=== PATIENT | male | born 1995 | race Caucasian/White ===

== ENCOUNTER 2016-07-30 09:46 | Emergency (ER) | payer BC ==
[2016-07-30 10:36] VITALS: BP 138/73
--- NOTE | 2016-07-30 12:08 | UC ---
Respiratory Complaint HPI - HPI Summary HPI Summary: cough congestion chest tightness fever worsening for the past 3 days - History of Current Complaint Chief Complaint: UCRespiratory Stated Complaint: CHEST CONGESTION Time Seen by Provider: 07/30/16 11:04 Hx Obtained From: Patient Onset/Duration: Sudden Onset, Lasting Days - 3, Still Present Timing: Constant Severity Initially: Mild Severity Currently: Moderate Pain Intensity: 4 Pain Scale Used: 0-10 Numeric Character: Cough: Productive Aggravating Factors: Exertion Alleviating Factors: Nothing Associated Signs And Symptoms: Positive: Fever, Chills, Pleuritic Chest Pain, URI - Allergies/Home Medications Allergies/Adverse Reactions: Allergies Allergy/AdvReac Type Severity Reaction Status Date / Time avoids naproxen AdvReac hx of Uncoded 07/30/16 10:37 ulcers PMH/Surg Hx/FS Hx/Imm Hx Previously Healthy: No GI/ History Of: Reports: Ulcer - Surgical History Surgical History: Yes Surgery Procedure, Year, and Place: HERNIA REPAIR - Family History Known Family History: Positive: Respiratory Disease - Social History Occupation: Employed Full-time - At [employer] Lives: With Family Alcohol Use: Rare Substance Use Type: None Smoking Status (MU): Never Smoked Tobacco - Immunization History Most Recent Influenza Vaccination: Review of Systems Constitutional: Fever, Chills Skin: Negative Eyes: Negative ENT: Negative Respiratory: Cough Cardiovascular: Chest Pain - bronchial Gastrointestinal: Negative Genitourinary: Negative Motor: Negative Neurovascular: Negative Musculoskeletal: Negative Neurological: Negative Psychological: Negative All Other Systems Reviewed And Are Negative: Yes Physical Exam Triage Information Reviewed: Yes Appearance: Well-Appearing, No Pain Distress, Well-Nourished Vital Signs: Initial Vital Signs Temp 101.2 F 07/30/16 10:33 Pulse 107 07/30/16 10:33 Resp 16 07/30/16 10:33 BP 138/73 07/30/16 10:33 Pulse Ox 98 07/30/16 10:33 Vital Signs Reviewed: Yes Eye Exam: Normal Eyes: Positive: Conjunctiva Clear ENT Exam: Normal ENT: Positive: Normal ENT inspection, Hearing grossly normal, Pharynx normal. Negative: Nasal congestion, Nasal drainage, TMs normal, Tonsillar swelling, Tonsillar exudate, Trismus, Muffled/hoarse voice Dental Exam: Normal Neck exam: Normal Neck: Positive: Supple, Nontender, No Lymphadenopathy Respiratory Exam: Normal Respiratory: Positive: Chest non-tender, Lungs clear, Normal breath sounds, No respiratory distress, No accessory muscle use Cardiovascular Exam: Other Cardiovascular: Positive: No Murmur, Pulses Normal, Brisk Capillary Refill, Tachycardia Musculoskeletal Exam: Normal Musculoskeletal: Positive: Strength Intact, ROM Intact, No Edema Neurological Exam: Normal Neurological: Positive: Alert, Muscle Tone Normal Psychological Exam: Normal Psychological: Positive: Normal Response To Family Skin Exam: Normal UC Diagnostic Evaluation - Laboratory O2 Sat by Pulse Oximetry: 98 Respiratory Course/Dx - Course Course Of Treatment: prednisone, albuterol, zithromax, increase fluids, follow with pcp re-check prn - Differential Dx/Diagnosis Differential Diagnosis/HQI/PQRI: Asthma, Bronchitis, Laryngitis, Lower Resp Infection, Tuberculosis Provider Diagnoses: Bronchitis with bronchospastic cough Discharge - Discharge Plan Condition: Stable Disposition: HOME Prescriptions: Albuterol HFA INHALER* [Ventolin HFA Inhaler*] 2 puff INH Q6H PRN #1 mdi PRN Reason: cough chest tightness Azithromycin TAB* [Zithromax TAB (Z-PAULA) 250 mg #6 tabs] 2 tab PO .TODAY, THEN 1 DAILY #1 paula Prednisone 40 mg PO DAILY #8 tab Patient Education Materials: Fever in Adults (ED), How to Use a Metered-Dose Inhaler (ED), Acute Bronchitis (ED) Referrals: Magaly Milton MD [Primary Care Provider] - If Needed
== END 2016-07-30 12:00 | disposition home or self-care (01) ==
LOC: UCCORT 09:46
DX: J20.9 Acute bronchitis, unspecified (principal); R07.89 Other chest pain; Z88.6 Allergy status to analgesic agent
CPT/HCPCS: 87502; 99212; G0463

== ENCOUNTER 2016-12-06 14:33 | Emergency (ER) | payer BC ==
[2016-12-06 14:51] VITALS: BP 128/75
--- NOTE | 2016-12-06 15:16 | UC ---
Respiratory Complaint HPI - HPI Summary HPI Summary: 21 male presents with complaints of cough that has been ongoing for the past week. States he also has a raspy voice that is accompanied by the cough. Denies production and any blood. Denies nasal congestion, sore throat, ear pain. Admits to having nausea and vomiting due to coughing so hard. Denies any chest pain just states he feels pressure and chest congestion. Denies SOB, difficulty breathing. Has been taking robitussin at bedtime with some relief. Cough is worse when laying down. Denies known fever/chills. Does admit to sweating at night time and his girlfriend states he feels very warm. No PMHx. Denies asthma or any other complaints at this time. - History of Current Complaint Chief Complaint: UCRespiratory Stated Complaint: UPPER RES/COUGH Time Seen by Provider: 12/06/16 14:47 Hx Obtained From: Patient Onset/Duration: Sudden Onset, Lasting Weeks - 1, Still Present Timing: Constant Severity Initially: Mild Severity Currently: Mild Pain Intensity: 0 Pain Scale Used: 0-10 Numeric Character: Cough: Nonproductive Aggravating Factors: Deep Breaths, Recumbent Position Alleviating Factors: OTC Meds - robitussin at night time, Upright Position Associated Signs And Symptoms: Positive: Fever - subjective, "sweating at night time". Negative: Dyspnea, Pleuritic Chest Pain, Wheezing, Hemoptysis, Dizziness , Calf Pain, Calf Swelling, URI, Nasal Congestion, Sinus Discomfort - Risk Factors Pulmonary Embolism Risk Factors: Negative Cardiac Risk Factors: Negative - Allergies/Home Medications Allergies/Adverse Reactions: Allergies Allergy/AdvReac Type Severity Reaction Status Date / Time avoids naproxen AdvReac hx of Uncoded 12/06/16 14:51 ulcers PMH/Surg Hx/FS Hx/Imm Hx - Additional Past Medical History Additional PMH: Denies PMHx. No diabetes, hypertension or asthma. no current medications other than robitussin at bedtime. - Surgical History Surgical History: Yes Surgery Procedure, Year, and Place: HERNIA REPAIR - Family History Known Family History: Positive: Respiratory Disease - Social History Alcohol Use: None Substance Use Type: None Smoking Status (MU): Never Smoked Tobacco - Immunization History Most Recent Influenza Vaccination: Vaccination Up to Date: Yes Review of Systems Constitutional: Fever - subjective Skin: Negative Eyes: Negative ENT: Negative Respiratory: Cough Cardiovascular: Negative Gastrointestinal: Vomiting, Nausea Motor: Negative Musculoskeletal: Negative Neurological: Negative All Other Systems Reviewed And Are Negative: Yes Physical Exam Triage Information Reviewed: Yes Appearance: Well-Appearing, No Pain Distress, Well-Nourished Vital Signs: Initial Vital Signs Temp 98.4 F 12/06/16 14:47 Pulse 75 12/06/16 14:47 Resp 18 12/06/16 14:47 BP 128/75 12/06/16 14:47 Pulse Ox 98 12/06/16 14:47 not hypoxic, afebrile Vital Signs Reviewed: Yes Eyes: Positive: Conjunctiva Clear ENT: Positive: Normal ENT inspection, Hearing grossly normal, Pharynx normal, TMs normal. Negative: Nasal congestion, Nasal drainage Dental: Negative: Percussion Tenderness @, Cervical Lymphadenopathy Neck: Positive: Supple, Nontender, No Lymphadenopathy Respiratory: Positive: Chest non-tender - coughing upon taking deep breaths, Lungs clear, Normal breath sounds, No respiratory distress, No accessory muscle use. Negative: Respiratory distress, Decreased breath sounds, Accessory muscle use, Crackles, Rhonchi, Stridor, Wheezing Cardiovascular: Positive: RRR, No Murmur, Pulses Normal Abdomen Description: Positive: Nontender, No Organomegaly, Soft Bowel Sounds: Positive: Present Musculoskeletal: Positive: Strength Intact, ROM Intact, No Edema Neurological: Positive: Alert Psychological Exam: Normal Skin Exam: Normal UC Diagnostic Evaluation - Laboratory O2 Sat by Pulse Oximetry: 98 Respiratory Course/Dx - Course Course Of Treatment: appears to be suffering from bronchitis. given prednisone and tessalon pearls. also suggested mucinex over the counter, fluids and rest. aware of worsening signs and symptoms. follow up pcp. return if symptoms persist or worsen within the next 7-10 days. - Differential Dx/Diagnosis Differential Diagnosis/HQI/PQRI: Asthma, Bronchitis, Influenza, Laryngitis, Lower Resp Infection, Other - upper respiratory complaint Provider Diagnoses: Acute Bronchitis Discharge - Discharge Plan Condition: Stable Disposition: HOME Prescriptions: Benzonatate CAP* [Tessalon 100 MG CAP*] 100 mg PO TID PRN #25 cap PRN Reason: Cough predniSONE TAB* [Deltasone TAB*] 40 mg PO DAILY #6 tab Patient Education Materials: Acute Bronchitis (ED) Referrals: Magaly Milton MD [Primary Care Provider] - Additional Instructions: Take prescribed medications as directed and as we discussed. Take the steroid ( prednisone) in the morning. Try and take cough medication only as needed and at bedtime. Take Mucinex over the counter for the next 7-10 days. Get plenty of rest and increase fluid intake. Follow up with PCP. If symptoms worsen, new symptoms develop or do not improve in the next 7-10 days please seek medical attention or return.
== END 2016-12-06 15:28 | disposition home or self-care (01) ==
LOC: UCCORT 14:33
DX: J20.9 Acute bronchitis, unspecified (principal); Z88.6 Allergy status to analgesic agent
CPT/HCPCS: 99212; G0463

== ENCOUNTER 2016-12-11 17:51 | Emergency (ER) | payer BC ==
[2016-12-11 18:27] VITALS: BP 167/80
[2016-12-11] MEDS ORDERED: Ibuprofen TAB* 600 MG PO ONE (18:29)
--- NOTE | 2016-12-11 18:37 | UC ---
Respiratory Complaint HPI - HPI Summary HPI Summary: C/o cough x > 1 wk. He was here 12/06 and dx'd with virus, given prednisone x 3 days. No inhaler, no abx. Cough has worsened and now with fever up to 101.3. Tool ibuprofen 7 hrs ago. + wheezing. no asthma hx. Has had to use inhaler in past. Here with his Remberto. - History of Current Complaint Chief Complaint: UCRespiratory Stated Complaint: COUGH Time Seen by Provider: 12/11/16 18:26 - Allergies/Home Medications Allergies/Adverse Reactions: Allergies Allergy/AdvReac Type Severity Reaction Status Date / Time avoids naproxen AdvReac hx of Uncoded 12/11/16 18:20 ulcers PMH/Surg Hx/FS Hx/Imm Hx Previously Healthy: Yes - Surgical History Surgical History: Yes Surgery Procedure, Year, and Place: HERNIA REPAIR - Family History Known Family History: Positive: Respiratory Disease - denies Fhx asthma - Social History Alcohol Use: None Substance Use Type: None Smoking Status (MU): Never Smoked Tobacco - Immunization History Most Recent Influenza Vaccination: Most Recent Tetanus Shot: UTD Vaccination Up to Date: Yes Review of Systems Constitutional: Fever, Fatigue Skin: Negative Eyes: Negative ENT: Negative Respiratory: Cough, Other - +wheezing Cardiovascular: Negative Gastrointestinal: Negative Genitourinary: Negative Motor: Negative Neurovascular: Negative Musculoskeletal: Negative Neurological: Negative Psychological: Negative All Other Systems Reviewed And Are Negative: Yes Physical Exam Triage Information Reviewed: Yes Appearance: Ill-Appearing - significant cough. Vital Signs: Initial Vital Signs Temp 101.5 F 12/11/16 18:20 Pulse 115 12/11/16 18:20 Resp 18 12/11/16 18:20 BP 167/80 12/11/16 18:20 Pulse Ox 100 12/11/16 18:20 Vital Signs Reviewed: Yes Eye Exam: Normal ENT: Positive: Pharyngeal erythema - +PND, TMs normal. Negative: Nasal congestion, TM bulging, TM dull, TM red, Tonsillar swelling, Tonsillar exudate, Muffled/hoarse voice Dental Exam: Normal Neck exam: Normal Neck: Positive: Supple, Nontender, No Lymphadenopathy Respiratory: Positive: Chest non-tender, Lungs clear, Decreased breath sounds. Negative: Crackles, Rhonchi, Stridor, Wheezing Cardiovascular Exam: Normal Cardiovascular: Positive: RRR, No Murmur, Pulses Normal, Brisk Capillary Refill Abdomen Description: Positive: Nontender, Soft Musculoskeletal Exam: Normal Neurological Exam: Normal Psychological Exam: Normal Skin Exam: Normal UC Diagnostic Evaluation - Laboratory O2 Sat by Pulse Oximetry: 100 Respiratory Course/Dx - Course Course Of Treatment: CXR today- RML infiltrate. Treat with augmentin - 1st dose given here. albuterol HFA. medrol dose pack to start tomorrow. Discussed that fatigue and cough may take up to 1 mo to resolve. fluids and rest. - Differential Dx/Diagnosis Differential Diagnosis/HQI/PQRI: Bronchitis, Lower Resp Infection, Other - pneumonia Provider Diagnoses: pneumonia Discharge - Discharge Plan Condition: Stable Disposition: HOME Prescriptions: Amoxicillin/Clavulanate TAB* [Augmentin TAB 875*] 875 mg PO BID #20 tab Methylprednisolone [Medrol Dosepak 4 MG*] 4 mg PO DAILY #1 belkys Patient Education Materials: Pneumonia (ED) Forms: *Work Release Referrals: Non Staff,Doctor [Primary Care Provider] - Saulo Eckert MD [Medical Doctor] - 2 Days Additional Instructions: Make sure to take a probiotic daily while on the antibiotic to help avoid a complication called c diff. make sure you get a repeat chest xray 4-6 weeks from now. Use the inhaler every 4-6 hrs. prednisone has been sent to the pharmacy with the remainder of the antibiotic. Please go to ER if your symptoms worsen.
--- NOTE | 2016-12-11 18:45 | RAD ---
INDICATION: Cough and fever. COMPARISON: Comparison is made with a prior study from August 19, 2015. TECHNIQUE: Dual-energy PA and lateral views of the chest were obtained. FINDINGS: The heart is within normal limits in size. Mediastinal and hilar contours appear within normal limits. The lungs are underinflated. There is a small patchy infiltrate present in the right middle lobe. The lungs are otherwise clear. No pleural effusion is seen. IMPRESSION: RIGHT MIDDLE LOBE INFILTRATE.
[2016-12-11] MEDS ORDERED: Amoxicillin/Clavulanate TAB* 875 MG PO ONE (19:09)
[2016-12-11] MEDS ORDERED: Albuterol HFA INHALER* 8 gm MDI INH ONE (19:10)
== END 2016-12-11 19:30 | disposition home or self-care (01) ==
LOC: UCCORT 17:51
DX: J18.9 Pneumonia, unspecified organism (principal)
CPT/HCPCS: 71020; 99213; A9270-GY; G0463

== ENCOUNTER 2016-12-13 17:33 | Emergency (ER) | payer BC ==
[2016-12-13 17:45] VITALS: BP 130/81
--- NOTE | 2016-12-13 18:53 | UC ---
Laceration HPI - HPI Summary HPI Summary: Patient presents with laceration to the right side of the cheek in the crease of the nose. He states he was hit in the face with a lug wrench. Denies LOC. Denies other symptoms. He was seen 2 days ago for PNA and states he is feeling better on the medication. Denies blood thinners. - History Of Current Complaint Chief Complaint: UCLaceration Stated Complaint: FACIAL LACERATION Hx Obtained From: Patient Laceration Location: Face Mechanism Of Injury: Sharp Trauma Onset/Duration: Sudden Onset Severity: Mild Pain Intensity: 0 Pain Scale Used: 0-10 Numeric Aggravating Factors: Nothing - Allergies/Home Medications Allergies/Adverse Reactions: Allergies Allergy/AdvReac Type Severity Reaction Status Date / Time avoids naproxen AdvReac hx of Uncoded 12/13/16 17:40 ulcers PMH/Surg Hx/FS Hx/Imm Hx Previously Healthy: Yes - Surgical History Surgical History: Yes Surgery Procedure, Year, and Place: HERNIA REPAIR - Family History Known Family History: Positive: Respiratory Disease - denies Fhx asthma - Social History Occupation: Employed Full-time Lives: With Family Alcohol Use: None Substance Use Type: None Smoking Status (MU): Never Smoked Tobacco Have You Smoked in the Last Year: No - Immunization History Most Recent Influenza Vaccination: Most Recent Tetanus Shot: UTD Vaccination Up to Date: Yes Review of Systems Constitutional: Negative Skin: Other - 2cm laceration to the right crease of the nose Eyes: Negative ENT: Sore Throat, Nasal Discharge, Sinus Congestion, Sinus Pain/Tenderness Respiratory: Shortness Of Breath, Cough Motor: Negative Neurovascular: Negative Musculoskeletal: Negative Neurological: Negative Psychological: Negative All Other Systems Reviewed And Are Negative: Yes Physical Exam Triage Information Reviewed: Yes Appearance: Well-Appearing, Well-Nourished Vital Signs: Initial Vital Signs Temp 100 F 12/13/16 17:40 Pulse 107 12/13/16 17:40 Resp 16 12/13/16 17:40 BP 130/81 12/13/16 17:40 Pulse Ox 98 12/13/16 17:40 Vital Signs Reviewed: Yes Eye Exam: Normal Eyes: Positive: Conjunctiva Clear ENT Exam: Normal ENT: Positive: Nasal drainage, Muffled/hoarse voice Neck exam: Normal Neck: Positive: Supple, Nontender, No Lymphadenopathy Respiratory Exam: Normal Cardiovascular Exam: Normal Cardiovascular: Positive: RRR Musculoskeletal Exam: Normal Musculoskeletal: Positive: Strength Intact Neurological Exam: Normal Psychological: Positive: Normal Response To Family, Age Appropriate Behavior Skin Exam: Normal Laceration Repair - Laceration Repair 1 Description: Linear Laceration Size After Repair: Length (cm) - 2cm Modified For Repair: No Closure Material: Skin Adhesive Laceration Course/Dx - Course/Dx Course Of Treatment: Wound irrigated. Skin adhesive applied with good effect. Bandage applied. Patient agrees to return for worsening symptoms. - Differential Dx - Laceration/Wound Differental Diagnoses: Abrasion, Avulsion, Foreign Body, Laceration Provider Diagnoses: laceration to nose Discharge - Discharge Plan Condition: Stable Disposition: HOME Patient Education Materials: Skin Adhesive Care (ED) Referrals: Non Staff,Doctor [Primary Care Provider] - Additional Instructions: Follow up for any worsening symptoms Tylenol or Ibuprofen for any discomfort
== END 2016-12-13 18:34 | disposition home or self-care (01) ==
LOC: UCCORT 17:33
DX: S01.21XA Laceration without foreign body of nose, initial encounter (principal); W27.8XXA Contact with other nonpowered hand tool, initial encounter; Y92.9 Unspecified place or not applicable
CPT/HCPCS: 12001; 12011; 99211; G0463

== ENCOUNTER 2017-09-22 08:23 | Emergency (ER) | payer BC ==
[2017-09-22 08:47] VITALS: BP 135/73
--- NOTE | 2017-09-22 09:29 | ED ---
Neck Pain - HPI Summary HPI Summary: Pt states woke up 3 days ago with tightess on right side on neck. sx have continued Little improvement with motrin 200mg no parehtesia, no ext weakness. no direct trauma no cp, sob, abd pain. No park, vision changes Pt notes improvement following shower - but brief no h/o similar pt's medications reviewed this visit - History of Current Complaint Chief Complaint: UCBackPain Stated Complaint: NECK PAIN Hx Obtained From: Patient Onset/Duration Of Injury/Symptoms: Days Mechanism Of Injury: Other - "slept funny" Timing: Constant, Lasting Days Onset/Duration: Started days ago Severity Initially: Mild Severity Currently: Moderate Pain Intensity: 5 - Allergies/Home Medications Allergies/Adverse Reactions: Allergies Allergy/AdvReac Type Severity Reaction Status Date / Time avoids naproxen AdvReac hx of Uncoded 09/22/17 08:47 ulcers PMH/Surg Hx/FS Hx/Imm Hx Previously Healthy: Yes Cardiovascular History: Denies: Other Cardiovascular Problems/Disorders - DENIES Respiratory History: Denies: Hx Asthma, Other Respiratory Problems/Disorders GI History: Reports: Hx Ulcer Denies: Other GI Disorders - DENIES History: Denies: Other Problems/Disorders - DENIES Neurological History: Denies: Other Neuro Impairments/Disorders - DENIES - Surgical History Surgery Procedure, Year, and Place: HERNIA REPAIR Infectious Disease History: No Infectious Disease History: Denies: Hx Clostridium Difficile, Hx Hepatitis, Hx Human Immunodeficiency Virus (HIV), Hx of Known/Suspected MRSA, Hx Shingles, Hx Tuberculosis, Hx Known/ Suspected VRE, Hx Known/Suspected VRSA, History Other Infectious Disease, Traveled Outside the [place] in Last 30 Days - Family History Known Family History: Positive: Respiratory Disease - denies Fhx asthma - Social History Occupation: Employed Full-time - [employer] [place] Lives: With Family Alcohol Use: None Substance Use Type: Reports: None Smoking Status (MU): Never Smoked Tobacco Have You Smoked in the Last Year: No Review of Systems Constitutional: Negative Positive: Decreased ROM, Other - neck Positive: Paresthesia All Other Systems Reviewed And Are Negative: Yes Physical Exam Triage Information Reviewed: Yes Vital Signs On Initial Exam: Initial Vitals Temp Pulse Resp BP Pulse Ox 98.1 F 89 18 135/73 98 09/22/17 08:43 04/06/18 08:43 09/22/17 08:43 09/22/17 08:43 09/22/17 08:43 Vital Signs Reviewed: Yes Appearance: Positive: Well-Appearing, Pain Distress - discomfort with movemet Skin: Positive: Warm, Dry Head/Face: Positive: Normal Head/Face Inspection Eyes: Positive: Normal, EOMI, MAKSIM ENT: Positive: Normal ENT inspection, Hearing grossly normal, Pharynx normal, TMs normal Neck: Positive: Supple, No Lymphadenopathy, Tenderness @ - right trapezius Respiratory/Lung Sounds: Positive: Clear to Auscultation, Breath Sounds Present Cardiovascular: Positive: Normal, RRR Abdomen Description: Positive: Nontender, No Organomegaly, Soft Bowel Sounds: Positive: Present Musculoskeletal: Positive: Other - no pain spinous process c/t/l/s + TTP right trapezius palpable right paraspinal muscles right upper cervical + flex neck with discomfort + extension + pain with rotation to left full AROM upper exxt b/ l with full strength Neurological: Positive: Sensory/Motor Intact, Alert, Oriented to Person Place, Time Psychiatric: Positive: Normal Diagnostics - Vital Signs Vital Signs Temp Pulse Resp BP Pulse Ox 09/22/17 08:43 98.1 F 89 18 135/73 98 - Laboratory Lab Statement: Any lab studies that have been ordered have been reviewed, and results considered in the medical decision making process. Neck Course/Dx - Course Course Of Treatment: Pt with right trapezius discomfort, palpable spasm. CSM intact. will place soft collar. motrin/apap. heat. stretch. flexeril - percautions discussed. PT referral. work note. return precautions - Diagnoses Provider Diagnoses: Muscle spasm Discharge - Sign-Out/Discharge Documenting (check all that apply): Discharge - Discharge Plan Condition: Stable Disposition: HOME Prescriptions: Acetaminop/Codeine 30 MG TAB* [Tylenol/Codeine 30 MG TAB*] 1 - 2 tab PO Q6H PRN #15 tab MDD 8 PRN Reason: moderate pain Cyclobenzaprine TAB* [Flexeril 10 MG TAB*] 10 mg PO BID PRN #14 tab PRN Reason: muscle spasm Patient Education Materials: Soft Cervical Collar (ED), Muscle Spasm (ED) Forms: *Gen. Provider Communication, *Work Release Referrals: Non Staff,Doctor [Primary Care Provider] - Additional Instructions: - Okay to alternate ibuprofen (Advil, Motrin) 600mg and Tylenol product ( Tylenol or tylenol with codeine) every 3hours as needed for pain. Take with food. Do NOT take for more than 4-[address], operate machinery or drink alcohol while taking codeine This medication may cause constipation - use a stool softner as needed - use muscle relaxant as prescribed - this will likely cause drowsiness, use with caution - apply moist heat to your neck, 2-3 times a day. Once your muscles are warm, slow gentle stretching exercises - wear neck collar for support and comfort - try to relax your muscles to allow this to support the weight of your head - schedule a follow-up appointment with physical therapy if your symptoms persist - contact the physician referral center to establish with a primary care provider - if you develop weakness or tingling in your arms, fever, vomiting or any other concerns you should go straight to the emergency department for further evaluation and treatment - Billing Disposition and Condition Condition: STABLE Disposition: HOME
== END 2017-09-22 09:52 | disposition home or self-care (01) ==
LOC: UCCORT 08:23
DX: R25.2 Cramp and spasm (principal)
CPT/HCPCS: 99213; G0463

== ENCOUNTER 2017-11-20 07:09 | Emergency (ER) | payer BC ==
[2017-11-20 07:28] VITALS: BP 116/75
[2017-11-20] MEDS ORDERED: Tetan/Diph/Pertus SYR(Tdap)* 0.5 ML SYR(BOOSTRIX) use SYR IM ONE (07:29)
--- NOTE | 2017-11-20 07:43 | ED ---
Skin Complaint - HPI Summary HPI Summary: 22 yr old male with right lateral leg scratch. Onset of symptoms yesterday. Taking apart a swing set, and a elias nail caught him on the lateral lower right leg. No fb. He doesn't recall his last tetanus shot. - History of Current Complaint Chief Complaint: UCSkin Time Seen by Provider: 11/20/17 07:29 Stated Complaint: RIGHT LEG COMPLAINT Pain Intensity: 4 - Allergy/Home Medications Allergies/Adverse Reactions: Allergies Allergy/AdvReac Type Severity Reaction Status Date / Time avoids naproxen AdvReac hx of Uncoded 09/22/17 08:47 ulcers Home Medications: Home Medications NK [No Home Medications Reported] 11/20/17 [History Confirmed 11/20/17] PMH/Surg Hx/FS Hx/Imm Hx Cardiovascular History: Denies: Other Cardiovascular Problems/Disorders - DENIES Respiratory History: Denies: Hx Asthma, Other Respiratory Problems/Disorders GI History: Reports: Hx Ulcer Denies: Other GI Disorders - DENIES History: Denies: Other Problems/Disorders - DENIES Neurological History: Denies: Other Neuro Impairments/Disorders - DENIES - Surgical History Surgery Procedure, Year, and Place: HERNIA REPAIR Infectious Disease History: No Infectious Disease History: Denies: Hx Clostridium Difficile, Hx Hepatitis, Hx Human Immunodeficiency Virus (HIV), Hx of Known/Suspected MRSA, Hx Shingles, Hx Tuberculosis, Hx Known/ Suspected VRE, Hx Known/Suspected VRSA, History Other Infectious Disease, Traveled Outside the in Last 30 Days - Family History Known Family History: Positive: Respiratory Disease - denies Fhx asthma - Social History Alcohol Use: None Substance Use Type: Reports: None Smoking Status (MU): Never Smoked Tobacco Have You Smoked in the Last Year: No Review of Systems Constitutional: Negative Positive: Other - scratch right lateral leg All Other Systems Reviewed And Are Negative: Yes Physical Exam Triage Information Reviewed: Yes Vital Signs On Initial Exam: Initial Vitals Temp Pulse Resp BP Pulse Ox 98.0 F 76 17 116/75 100 11/20/17 07:23 11/20/17 07:23 11/20/17 07:23 11/20/17 07:23 11/20/17 07:23 Vital Signs Reviewed: Yes Appearance: Positive: Well-Appearing, No Pain Distress Skin: Positive: Warm, Dry, Other - superficial abrasion right lateral leg without any FB palpated or seen on inspection. Wound appears clean. Head/Face: Positive: Normal Head/Face Inspection Eyes: Positive: EOMI ENT: Positive: Pharynx normal Neck: Positive: Nontender Respiratory/Lung Sounds: Positive: Other - normal effort Cardiovascular: Negative: Leg Edema Left, Leg Edema Right Abdomen Description: Negative: Distended Musculoskeletal: Positive: Strength/ROM Intact Neurological: Positive: Alert, Oriented to Person Place, Time, CN Intact II-III , Normal Gait, Speech Normal Psychiatric: Positive: Normal - [place] Coma Scale Best Eye Response: 4 - Spontaneous Best Motor Response: 6 - Obeys Commands Best Verbal Response: 5 - Oriented Coma Scale Total: 15 Diagnostics - Vital Signs Vital Signs Temp Pulse Resp BP Pulse Ox 11/20/17 07:23 98.0 F 76 17 116/75 100 - Laboratory Lab Statement: Any lab studies that have been ordered have been reviewed, and results considered in the medical decision making process. Course/Dx - Course Course Of Treatment: 22 yr male with superficial wound right leg. Tetanus shot updated. - Diagnoses Provider Diagnoses: Abrasion Discharge - Sign-Out/Discharge Documenting (check all that apply): Discharge/Admit/Transfer - Discharge Plan Condition: Good Disposition: HOME Patient Education Materials: Abrasion (ED) Referrals: [facility] REFERRAL [Outside] - 2 Days No Primary Care Phys,NOPCP [Primary Care Provider] - - Billing Disposition and Condition Condition: GOOD Disposition: HOME
== END 2017-11-20 07:39 | disposition home or self-care (01) ==
LOC: UCCORT 07:09
DX: S80.811A Abrasion, right lower leg, initial encounter (principal); W45.0XXA Nail entering through skin, initial encounter; Y93.9 Activity, unspecified; Y99.9 Unspecified external cause status
CPT/HCPCS: 90471; 90715; 96372; 99211; G0463

== ENCOUNTER 2018-07-06 13:26 | Emergency (ER) | payer BC ==
[2018-07-06 13:32] VITALS: BP 133/74
[2018-07-06] MEDS ORDERED: predniSONE TAB* 20 MG PO ONE (14:23)
[2018-07-06] MEDS ORDERED: Albuterol HFA INHALER* 8 gm MDI INH ONE (14:23)
--- NOTE | 2018-07-06 14:25 | UC ---
Respiratory Complaint HPI - HPI Summary HPI Summary: The patient is a 23-year-old male has had a cough for 2 weeks. His cough has been worsening. He sometimes has phlegm. For the past few days she has had a headache mild myalgias as well as a fever and chills. Denies any history of pneumonia. - History of Current Complaint Chief Complaint: UCRespiratory Stated Complaint: CONGESTED Time Seen by Provider: 07/06/18 13:33 Hx Obtained From: Patient Onset/Duration: Gradual Onset, Lasting Weeks - 2 Timing: Constant Severity Initially: Mild Severity Currently: Moderate Pain Intensity: 0 Pain Scale Used: 0-10 Numeric Character: Cough: Productive Aggravating Factors: Nothing Associated Signs And Symptoms: Positive: Fever, Chills. Negative: Dyspnea, Dizziness, Calf Pain, Calf Swelling, Edema, URI, Nasal Congestion, Hoarseness, Sinus Discomfort - Allergies/Home Medications Allergies/Adverse Reactions: Allergies Allergy/AdvReac Type Severity Reaction Status Date / Time avoids naproxen AdvReac hx of Uncoded 07/06/18 13:32 ulcers PMH/Surg Hx/FS Hx/Imm Hx Previously Healthy: Yes Respiratory History: Bronchitis - Surgical History Surgical History: Yes Surgery Procedure, Year, and Place: HERNIA REPAIR - Family History Known Family History: Positive: Hypertension, Respiratory Disease - denies Fhx asthma - Social History Alcohol Use: None Substance Use Type: None Smoking Status (MU): Never Smoked Tobacco Have You Smoked in the Last Year: No - Immunization History Most Recent Influenza Vaccination: Most Recent Tetanus Shot: UTD Vaccination Up to Date: Yes Review of Systems All Other Systems Reviewed And Are Negative: Yes Constitutional: Positive: Fever, Chills, Fatigue Skin: Positive: Negative Eyes: Positive: Negative ENT: Positive: Negative Respiratory: Positive: Cough Cardiovascular: Positive: Negative Gastrointestinal: Positive: Negative Genitourinary: Positive: Negative Motor: Positive: Negative Neurovascular: Positive: Negative Musculoskeletal: Positive: Negative Neurological: Positive: Negative Psychological: Positive: Negative Physical Exam Triage Information Reviewed: Yes Appearance: Well-Appearing, No Pain Distress, Well-Nourished Vital Signs: Initial Vital Signs Temp 100.6 F 07/06/18 13:29 Pulse 100 07/06/18 13:29 Resp 20 07/06/18 13:29 BP 133/74 07/06/18 13:29 Pulse Ox 100 07/06/18 13:29 Vital Signs Reviewed: Yes Eyes: Positive: Conjunctiva Clear ENT: Positive: Hearing grossly normal, Uvula midline. Negative: Nasal congestion, Nasal drainage, Trismus, Muffled voice, Hoarse voice, Sinus tenderness Neck: Positive: Supple, Nontender, No Lymphadenopathy Respiratory: Positive: No respiratory distress, No accessory muscle use, Decreased breath sounds, Wheezing - with forced expiration Cardiovascular: Positive: RRR, No Murmur Musculoskeletal: Positive: ROM Intact, No Edema Neurological: Positive: Alert Psychological Exam: Normal Skin Exam: Normal UC Diagnostic Evaluation - Laboratory O2 Sat by Pulse Oximetry: 100 - nrmal/not hypoxic Respiratory Course/Dx - Course Course Of Treatment: influenza (-) - Differential Dx/Diagnosis Provider Diagnosis: Bronchospasm with bronchitis, acute Discharge - Sign-Out/Discharge Documenting (check all that apply): Patient Departure All imaging exams completed and their final reports reviewed: No Studies - Discharge Plan Condition: Stable Disposition: HOME Prescriptions: Amoxicillin PO (*) [Amoxicillin 875 MG (*)] 875 mg PO BID #14 tab predniSONE [Deltasone 20 MG TAB] 40 mg PO DAILY #8 tab Patient Education Materials: Acute Bronchitis (ED) Referrals: No Primary Care Phys,NOPCP [Primary Care Provider] - Additional Instructions: recheck in 4 days if not improved use inhaler as directed recheck for new or worsening symptoms - Billing Disposition and Condition Condition: STABLE Disposition: Home
== END 2018-07-06 14:40 | disposition home or self-care (01) ==
LOC: UCEAST 13:26
DX: J20.9 Acute bronchitis, unspecified (principal)
CPT/HCPCS: 99213; A9270-GY; G0463; J7512

== ENCOUNTER 2018-07-31 13:33 | Emergency (ER) | payer BC ==
[2018-07-31 14:06] VITALS: BP 123/64
--- NOTE | 2018-07-31 14:17 | UC ---
Throat Pain/Nasal Hugo HPI - HPI Summary HPI Summary: nasal congestion / cough x 1 day felt achy and sweating last night no sore throat , no fever, + chills no n/v/d/c no urinary symptoms - History of Current Complaint Chief Complaint: UCGeneralIllness Stated Complaint: FEVER,COUGH,CONGESTION Time Seen by Provider: 07/31/18 14:09 Hx Obtained From: Patient Onset/Duration: Gradual Onset, Lasting Days - 1, Still Present Severity: Moderate Pain Intensity: 0 Cough: Nonproductive Associated Signs & Symptoms: Positive: Nasal Discharge. Negative: Dysphagia, FB Sensation, Drooling, Wheezing, Hoarseness, Sinus Discomfort, Fever, Vomiting , Rash - Allergies/Home Medications Allergies/Adverse Reactions: Allergies Allergy/AdvReac Type Severity Reaction Status Date / Time avoids naproxen AdvReac hx of Uncoded 07/31/18 14:02 ulcers Home Medications: Home Medications Acetaminophen [Tylenol Extra Strength] 1,000 mg PO ONCE 07/31/18 [History Confirmed 07/31/18] Ibuprofen TAB* [Advil TAB*] 800 mg PO Q6H PRN 07/31/18 [History Confirmed ] PMH/Surg Hx/FS Hx/Imm Hx Previously Healthy: No GI/ History: Ulcer - Surgical History Surgical History: Yes Surgery Procedure, Year, and Place: HERNIA REPAIR - Family History Known Family History: Positive: Hypertension, Respiratory Disease - denies Fhx asthma - Social History Alcohol Use: None Substance Use Type: None Smoking Status (MU): Never Smoked Tobacco Have You Smoked in the Last Year: No - Immunization History Most Recent Influenza Vaccination: Most Recent Tetanus Shot: UTD Vaccination Up to Date: Yes Review of Systems All Other Systems Reviewed And Are Negative: Yes Constitutional: Positive: Chills Skin: Positive: Negative Eyes: Positive: Negative ENT: Positive: Nasal Discharge Respiratory: Positive: Cough Cardiovascular: Positive: Negative Gastrointestinal: Positive: Negative Is Patient Immunocompromised?: No Physical Exam Triage Information Reviewed: Yes Appearance: Well-Appearing, No Pain Distress, Well-Nourished Vital Signs: Initial Vital Signs Temp 98.1 F 07/31/18 14:03 Pulse 98 07/31/18 14:03 Resp 16 07/31/18 14:03 BP 123/64 07/31/18 14:03 Pulse Ox 98 07/31/18 14:03 Vital Signs Reviewed: Yes Eyes: Positive: Conjunctiva Clear ENT Exam: Normal ENT: Positive: Normal ENT inspection, Hearing grossly normal, Pharynx normal Neck: Positive: Supple, Nontender, No Lymphadenopathy Respiratory: Positive: Chest non-tender, Lungs clear, Normal breath sounds, No respiratory distress Cardiovascular: Positive: RRR, No Murmur Abdominal Exam: Normal Abdomen Description: Positive: Nontender, Soft. Negative: CVA Tenderness (R), CVA Tenderness (L), Distended, Guarding Bowel Sounds: Positive: Present Throat Pain/Nasal Course/Dx - Differential Dx/Diagnosis Provider Diagnosis: URI (upper respiratory infection) Discharge - Sign-Out/Discharge Documenting (check all that apply): Patient Departure All imaging exams completed and their final reports reviewed: No Studies - Discharge Plan Condition: Stable Disposition: HOME Patient Education Materials: Upper Respiratory Infection (DC) Referrals: No Primary Care Phys,NOPCP [Primary Care Provider] - If Needed Additional Instructions: viral illness, no need for antibiotics cont. with rest, increase fluid , take Tylenol as needed for pain / fever follow up as needed - Billing Disposition and Condition Condition: STABLE Disposition: Home
== END 2018-07-31 14:19 | disposition home or self-care (01) ==
LOC: UCCORT 13:33
DX: J06.9 Acute upper respiratory infection, unspecified (principal); Z88.8 Allergy status to other drugs, medicaments and biological substances
CPT/HCPCS: 99211; G0463

== ENCOUNTER 2019-03-07 07:57 | Emergency (ER) | payer BC ==
[2019-03-07 08:17] VITALS: BP 127/89
--- NOTE | 2019-03-07 08:38 | UC ---
Abdominal Pain Male HPI - HPI Summary HPI Summary: abdominal pain / cramp x 1 day pain is 3 out of 10 , worse with eating , better NPO + nausea and vomiting, , vomited more that 5 x yesterday + diarrhea , no fever, no chills, no urinary sx - History of Current Complaint Chief Complaint: UCGI Stated Complaint: VOMITTING,STOMACH ACHE Time Seen by Provider: 03/07/19 08:25 Hx Obtained From: Patient Onset/Duration: Gradual Onset, Lasting Days - 1, Still Present Timing: Constant Severity Initially: Moderate Severity Currently: Moderate Pain Intensity: 0 Location: Diffuse Radiates: No Character: Cramping Aggravating Factor(s): Food Alleviating Factor(s): Nothing Associated Signs And Symptoms: Positive: Nausea, Vomiting, Diarrhea. Negative: Diaphoresis, Fever, Cough, Chest Pain, Dizzy, Back Pain, Constipation, Blood in Stool, Urinary Symptoms, Decreased Appetite, Penile Discharge - Allergies/Home Medications Allergies/Adverse Reactions: Allergies Allergy/AdvReac Type Severity Reaction Status Date / Time avoids naproxen AdvReac hx of Uncoded 03/07/19 08:17 ulcers PMH/Surg Hx/FS Hx/Imm Hx Previously Healthy: Yes - Surgical History Surgical History: Yes Surgery Procedure, Year, and Place: HERNIA REPAIR - Family History Known Family History: Positive: Hypertension, Respiratory Disease - denies Fhx asthma - Social History Alcohol Use: None Substance Use Type: None Smoking Status (MU): Never Smoked Tobacco Have You Smoked in the Last Year: No - Immunization History Most Recent Influenza Vaccination: Most Recent Tetanus Shot: UTD Vaccination Up to Date: Yes Review of Systems All Other Systems Reviewed And Are Negative: Yes Constitutional: Positive: Negative Skin: Positive: Negative Eyes: Positive: Negative ENT: Positive: Negative Gastrointestinal: Positive: Abdominal Pain, Vomiting, Diarrhea, Nausea Is Patient Immunocompromised?: No Physical Exam Triage Information Reviewed: Yes Appearance: Well-Appearing, No Pain Distress, Well-Nourished Vital Signs: Initial Vital Signs Temp 98.9 F 03/07/19 08:13 Pulse 70 03/07/19 08:13 Resp 16 03/07/19 08:13 BP 127/89 03/07/19 08:13 Pulse Ox 100 03/07/19 08:13 Vital Signs Reviewed: Yes Eye Exam: Normal Eyes: Positive: Conjunctiva Clear ENT: Positive: Normal ENT inspection, Hearing grossly normal, Pharynx normal Neck: Positive: Supple, Nontender, No Lymphadenopathy Respiratory: Positive: Chest non-tender, Lungs clear, Normal breath sounds Cardiovascular: Positive: RRR, No Murmur, Pulses Normal Abdomen Description: Positive: Nontender, Soft. Negative: CVA Tenderness (R), CVA Tenderness (L), Distended, Guarding Bowel Sounds: Positive: Present Abd Pain Male Course/Dx - Differential Dx/Clinical Impression Provider Diagnosis: Gastroenteritis Discharge ED - Sign-Out/Discharge Documenting (check all that apply): Patient Departure All imaging exams completed and their final reports reviewed: No Studies - Discharge Plan Condition: Stable Disposition: HOME Patient Education Materials: Gastroenteritis (ED) Referrals: No Primary Care Phys,NOPCP [Primary Care Provider] - If Needed - Billing Disposition and Condition Condition: STABLE Disposition: Home
== END 2019-03-07 08:34 | disposition home or self-care (01) ==
LOC: UCCORT 07:57
DX: K52.9 Noninfective gastroenteritis and colitis, unspecified (principal)
CPT/HCPCS: 99211; G0463